=== PATIENT | male | born 1975 | race Caucasian/White ===

== ENCOUNTER 2018-05-31 15:45 | Emergency (ER) | payer OTHER ==
[~2018-05-31] VITALS: Ht 185.4 cm; Wt 81.7 kg
[2018-05-31] MEDS ORDERED: OMEPRAZOLE40 MG PO (20:52)
== END 2018-05-31 21:03 | disposition home or self-care (01) ==
LOC: ED 15:45
DX: R10.9 Unspecified abdominal pain (principal)
CPT/HCPCS: 74177; 80053; 81001; 83690; 85025; 99284; Q9967

== ENCOUNTER 2018-06-09 06:25 | Day surgery (SDC) | payer OTHER ==
[~2018-06-09] VITALS: Ht 182.9 cm; Wt 81.7 kg
--- NOTE | ~2018-06-09 | OR ---
[facility] [address] [place], [place] [address] Draft DATE OF OPERATION: 06/09/2018 SURGEON: Yandel Palafox MD PREOPERATIVE DIAGNOSES: 1. Severe unrelenting abdominal pain, epigastric and left upper quadrant, and occasions of left lower quadrant pain. 2. Diarrhea. POSTOPERATIVE DIAGNOSES: 1. Hiatal hernia with mild distal esophagitis and mild proximal gastritis. 2. Normal-appearing colon and ileum except for mild proctitis, probably bowel prep related. PROCEDURES PERFORMED: 1. Esophagogastroduodenoscopy with biopsy. 2. Total colonoscopy to cecum with biopsies of ileum, cecum, and rectum. ANESTHESIA: Intravenous sedation, fentanyl 150 mcg, and Versed 8 mg. INDICATION: This 42-year-old white man is a patient of KJ Giron as well as Dr. Solano. He has recently had the onset of severe epigastric and left upper quadrant pain as well as left lower abdominal pain. His initial symptoms began a month ago with generalized bloating following meals. His evaluation included a CT scan, which shows no specific abnormality particularly. He has had no fever or chills, or blood per rectum, but has had diarrhea. He has had no vomiting. Has no dysphagia. He was admitted at this time to undergo upper endoscopy as well as colonoscopy to better characterize the problem. He understands risks of bleeding, infection, and perforation, and wished to proceed. FINDINGS: On upper endoscopy, he had a small hiatal hernia and minimal distal esophagitis. There is some proximal (fundic) inflammatory change with the pylorus and duodenum, and stomach were otherwise normal. CLOtest was negative 20 minutes post procedure. On colonoscopy, the prep was quite good. Complete colonoscopy was undertaken of the cecum and intubation of the ileum was accomplished without problem. The ileum appeared PATIENT NAME: HARMEET FRENCH OPERATIVE REPORT DATE OF : 77 REPORT #: [id number] PHYSICIAN: YANDEL PALAFOX MD PCP: LIS SEE PAC REPORT IS CONFIDENTIAL AND NOT TO BE RELEASED WITHOUT AUTHORIZATION [facility] [address] [place], [place] [address] Draft normal. The biopsies were obtained nevertheless. Biopsies were also obtained of the cecum in the rectum throughout the colon. There was no sign of inflammatory bowel disease, diverticular formation, cancer or polyps. There was minimal inflammatory change of the rectum, which I suspect his bowel prep related and not clinically significant. DESCRIPTION OF PROCEDURE: The patient was brought to the endoscopy suite and placed in lateral decubitus position after undergoing topical Hurricaine spray hypopharyngeal anesthesia. A bite block was placed. Full cardiopulmonary monitoring was maintained. An Olympus video upper endoscope was passed in the hypopharynx. The vocal cords appeared normal. Scope was advanced to the esophagus throughout its length, it was normal. Scope was passed in the stomach, which was insufflated with air, rugal folds were normal, antrum was normal, pylorus was normal. Scope was passed through into the duodenum, which looked normal. The scope was passed to the 3rd portion. The scope was withdrawn and biopsies taken of 2nd, 3rd, and bulbar portions. The scope was withdrawn to the antrum, where biopsies were obtained as well. Retroflexed view was undertaken showing a small hiatal hernia and some proximal gastric inflammatory change, but no ulceration. Biopsies were taken of proximal distal stomach for CLOtest. The scope was withdrawn to the distal esophagus, where biopsies were then taken and in the mid esophagus additional biopsies obtained. Further withdrawal of scope showed no other abnormality. The table was rotated and additional sedation given and digital rectal examination performed, which was normal. An Olympus video colonoscope was passed in the rectum and manipulated throughout the colon, ultimately intubating the cecum. The ileocecal valve was identified and intubated without problem. The scope was passed at least 10 cm into the ilium, showing no sign of inflammatory bowel disease. Biopsies were obtained throughout the segment of the ileum. The scope was withdrawn to the cecum which was biopsied, though it appeared normal. Careful withdrawal of scope showed no sign of abnormality. Specifically no polyps, diverticular formation, colitis, or cancer. Biopsies were also taken of the rectum to assess for occult colitis. Retroflexed view was normal as well. The scope was straightened, withdrawn, and removed, and the patient was taken to recovery in good condition. CONCLUDING DIAGNOSES: 1. Essentially normal colon. 2. Mild proximal gastritis, hiatal hernia, and minimal esophagitis. PLAN: Recommend continued use of Carafate as prescribed yesterday. We will obtain a gallbladder ultrasound and if necessary, a CCK-HIDA test. PATIENT NAME: HARMEET FRENCH AMIE OPERATIVE REPORT DATE OF : 77 REPORT #: [id number] PHYSICIAN: YANDEL PALAFOX MD PCP: LIS SEE PAC REPORT IS CONFIDENTIAL AND NOT TO BE RELEASED WITHOUT AUTHORIZATION [address] [address] Draft MD MEGA Stringer/MODL /[id number] cc: KJ Giron MD Copies: IVETTE SOLANO MD ~ PATIENT NAME: HARMEET FRENCH OPERATIVE REPORT DATE OF : 77 REPORT #: [id number] PHYSICIAN: YANDEL PALAFOX MD PCP: LIS SEE PAC REPORT IS CONFIDENTIAL AND NOT TO BE RELEASED WITHOUT AUTHORIZATION
[~2018-06-09 06:25] MED LIST: OMEPRAZOLE40 MG PO
--- NOTE | 2018-06-09 08:41 | NUR ---
06/09/18 0841 Shawanda Contreras 0867-PATIENT ARRIVED TO PACU ON 3L NC WEANED TO 2L O2 SAT 98% PATIENT DROWSY AWAKE DENIES PAIN OR NAUSEA. ABDOMEN SOFT. ENCOURAGED TO PASS FLATUS.
== END 2018-06-09 09:30 | disposition home or self-care (01) ==
LOC: DS 06:25 → OPS 06:25 → DS 06:45 → OPS 09:30
PROVIDERS: Surgery
PROC: 0DB68ZX Excision of Stomach, Via Natural or Artificial Opening Endoscopic, Diagnostic (ICD-10-PCS; 2018-06-09)
PROC: 0DB28ZX Excision of Middle Esophagus, Via Natural or Artificial Opening Endoscopic, Diagnostic (ICD-10-PCS; 2018-06-09)
PROC: 0DB38ZX Excision of Lower Esophagus, Via Natural or Artificial Opening Endoscopic, Diagnostic (ICD-10-PCS; 2018-06-09)
PROC: 0DBH8ZX Excision of Cecum, Via Natural or Artificial Opening Endoscopic, Diagnostic (ICD-10-PCS; 2018-06-09)
PROC: 0DBP8ZX Excision of Rectum, Via Natural or Artificial Opening Endoscopic, Diagnostic (ICD-10-PCS; 2018-06-09)
PROC: 0DBB8ZX Excision of Ileum, Via Natural or Artificial Opening Endoscopic, Diagnostic (ICD-10-PCS; 2018-06-09)
PROC: 0DB98ZX Excision of Duodenum, Via Natural or Artificial Opening Endoscopic, Diagnostic (ICD-10-PCS; principal; 2018-06-09 06:45)
PROC: 0DB78ZX Excision of Stomach, Pylorus, Via Natural or Artificial Opening Endoscopic, Diagnostic (ICD-10-PCS; 2018-06-09 06:45)
DX: K62.1 Rectal polyp (principal); K29.50 Unspecified chronic gastritis without bleeding; K29.80 Duodenitis without bleeding; K21.0 Gastro-esophageal reflux disease with esophagitis; K62.89 Other specified diseases of anus and rectum; K44.9 Diaphragmatic hernia without obstruction or gangrene
CPT/HCPCS: 99153; G0500; J2250; J3010; J7120

== ENCOUNTER 2018-06-18 08:40 | Day surgery (SDC) | payer OTHER ==
[~2018-06-18] VITALS: Ht 182.9 cm; Wt 81.7 kg
[2018-06-18] MEDS ORDERED: OXYCODON-ACETA1 EAC2 PO (14:40)
[2018-06-18] MEDS ORDERED: IBUPROFEN600 MG PO (14:40)
[2018-06-18] MEDS ORDERED: MAPAP325 MG PO (14:41)
--- NOTE | 2018-06-18 14:47 | NUR ---
06/18/18 Mikey7 Yojana Ervin 1433- PT ARRIVES TO PACU WITH EYES CLOSED. PT HAS MASK ON WITH 6 L 02. PT QUICKLY AWAKENS TO VERBAL STIMULATION AND IS ORIENTED TO PERSON, PLACE AND TIME. PT C/O PAIN IN RIGHT SHOULDER RATING IT 6/10. SCD'S IN PLACE BILAT.
--- NOTE | 2018-06-18 15:44 | NUR ---
1530: PATIENT BACK IN DAY SURGERY ROOM FROM PACU. C/O PAIN 5/10. DECLINES PAIN MEDS AT THIS TIME. DENIES NAUSEA. GIVEN ICE WATER AND JUICE. IV SITE WNL. 4 SCOPE SITE ON ABDOMEN WITH STERI STRIPS. SCANT AMOUNT OF RED DRAINAGE AT SCOPE SITES. SCDs ON. SOUP AND SANDWICH ORDERED FOR PATIENT. CALL LIGHT WITHIN REACH. FAMILY AT BEDSIDE.
--- NOTE | 2018-06-18 16:28 | NUR ---
PATIENT TOLERATED SOUP, SANDWICH, JUICE, AND WATER. STATES PAIN UP TO ABOUT 8/10 IN ABDOMEN AND RIGHT SHOULDER. MEDICATED FOR PAIN WITH 1 TABLET OF PERCOCET. IV SITE WNL. VS CHECKED. SCDs ON. CALL LIGHT WITHIN REACH.
--- NOTE | 2018-06-18 17:59 | NUR ---
LE 1545: PT UP TO BR W/RN STANDBY. PT AMBULATES WELL AND DENIES DIZZINESS. PT VOIDS 200 ML CLEAR YELLOW URINE AND DC INSTRUCTIONS ARE GIVEN IN PRESENCE OF SPOUSE. SUPRAUMBILICAL SITE REINFORCED W/GAUZE AND TAPE. PT DRESSES SELF IN PRESENCE OF SPOUSE AND TRANSFERS SELF TO AND THEN TO PERSONAL VEHICLE AND DOES THAT WELL.
--- NOTE | 2018-06-18 23:25 | OR ---
[facility] [address] [place], [place] [address] Signed DATE OF OPERATION: 06/18/2018 SURGEON: Yandel Palafox MD PREOPERATIVE DIAGNOSIS: Chronic abdominal pain, probable acalculous cholecystitis. POSTOPERATIVE DIAGNOSIS: Acalculous cholecystitis with some stone debris within the gallbladder. PROCEDURES PERFORMED: 1. Laparoscopic cholecystectomy with intraoperative cholangiogram. 2. Surgeon-directed fluoroscopy. ANESTHESIA: General endotracheal, Ute Ed, C.R.N.A., and local 11 mL of 0.25% Marcaine with epinephrine. INDICATION: This 42-year-old white man is a patient of Lorenzo Dos Santos and Dr. Ivette Solano, who has had enigmatic generalized abdominal pain, often worse following meals. Extensive evaluation has been undertaken. Gallbladder ultrasound is normal and a recent CCK HIDA test showed an ejection fraction of 95% with marked reproduction of his symptoms. It is recalled that upper endoscopy and colonoscopy showed no sign of lesion to account for symptoms. My concern was he may have possible irritable bowel syndrome. On the basis of his recent findings on CCK HIDA test and with dominant symptoms including right subcostal pain following meals, he is considered likely to have acalculous cholecystitis and on that basis, has been recommended to consider cholecystectomy preferably by laparoscopic approach. The risks of bleeding, infection, bile duct injury, and most importantly failure to cure his symptoms was reviewed in detail in relationship to cholecystectomy. An open procedure may be required as well. He understands all of this and wished to proceed. FINDINGS: Gallbladder did appear chronically inflamed. The liver was entirely normal. The appendix was not visualized. The duodenum, stomach, and liver in its entirety were normal. The gallbladder once excised showed a small amount of stone debris within the gallbladder mucosa with chronic inflammatory change. The cholangiogram was normal. Electronically Signed By: YANDEL PALAFOX MD 06/18/18 2325 PATIENT NAME: LORENZO FRENCH OPERATIVE REPORT DATE OF : 77 REPORT #: [id number] PHYSICIAN: YANDEL PALAFOX MD PCP: LIS SEE PAC REPORT IS CONFIDENTIAL AND NOT TO BE RELEASED WITHOUT AUTHORIZATION [facility] [address], [place] [address] Signed DESCRIPTION OF PROCEDURE: The patient was brought to the operating room and given a general endotracheal anesthetic. Preoperative antibiotic Ancef was given. Sequential compression device stockings used and heparin subcutaneously administered. The abdomen was prepared with chlorhexidine solution and draped sterilely. An infraumbilical incision was made and using an open Vani cannula technique, the abdomen was entered without problem and pneumoperitoneum achieved to a level of 14 mmHg with carbon dioxide gas. Intraabdominal inspection with a 30-degree angled laparoscope was undertaken showing a chronically inflamed gallbladder, normal liver, and no other findings of concern. An epigastric 10-mm port was placed and subsequently two right-sided 5-mm trocars under direct visualization as well. The gallbladder was elevated cephalad and retracted laterally and using blunt electrocautery dissection, the triangle of Calot was dissected free. Once the cystic duct and cystic artery were well identified, maintaining the critical view, a clip was applied across the gallbladder cystic duct junction and a transverse choledochotomy made in the cystic duct. Egress of clear bile was noted from the cystic duct with retrograde milking of the duct. Using an Beltrán type cholangiocatheter, intraoperative cholangiography was undertaken showing free flow of contrast in biliary tree with prompt emptying into the duodenum. There was no sign of filling defect, biliary anomalies, or other abnormalities. The catheter was removed and the cystic duct was triply clipped and divided and the gallbladder dissected free in a retrograde fashion. The gallbladder was extracted through the infraumbilical port site without problem, opened on the back table, and found to have cholesterol stone debris, but no well-formed stones otherwise. The mucosa was chronically inflamed. Irrigation was undertaken in subhepatic space. There was no sign of bile leak, bleeding, or other problems. The trocars were removed under direct visualization showing no sign of bleeding. The infraumbilical fascial incision was reapproximated with interrupted 0-Vicryl suture. All wounds were copiously irrigated and 11 mL of 0.25% Marcaine with epinephrine was injected locally for postoperative analgesic effect. The skin was then closed with interrupted 3-0 Vicryl. Steri-Strips were applied. The patient was ultimately extubated and transferred to recovery room in good condition having suffered no complication. Sponge, needle, and instrument counts were reported as correct x3. MD MEGA Stringer/ELIA /[id number] Electronically Signed By: YANDEL PALAFOX MD 06/18/18 2325 PATIENT NAME: LORENZO FRENCH OPERATIVE REPORT DATE OF : 77 REPORT #: [id number] PHYSICIAN: YANDEL PALAFOX MD PCP: LIS SEE PAC REPORT IS CONFIDENTIAL AND NOT TO BE RELEASED WITHOUT AUTHORIZATION [facility] [address] [place], [place] [address] Signed cc: Agnes Robles MD Copies: IVETTE SOLANO MD ~ Electronically Signed By: YANDEL PALAFOX MD 06/18/18 2325 PATIENT NAME: LORENZO FRENCH OPERATIVE REPORT DATE OF : 77 REPORT #: [id number] PHYSICIAN: YANDEL PALAFOX MD PCP: LIS SEE PAC REPORT IS CONFIDENTIAL AND NOT TO BE RELEASED WITHOUT AUTHORIZATION
== END 2018-06-18 17:50 | disposition home or self-care (01) ==
LOC: DS 08:40
PROVIDERS: Surgery
PROC: BF13YZZ Fluoroscopy of Gallbladder and Bile Ducts using Other Contrast (ICD-10-PCS; 2018-06-18)
PROC: 0FT44ZZ Resection of Gallbladder, Percutaneous Endoscopic Approach (ICD-10-PCS; principal; 2018-06-18 10:30)
DX: K81.1 Chronic cholecystitis (principal); Z79.899 Other long term (current) drug therapy
CPT/HCPCS: 00790; 74300; J0690; J1100; J1644; J1885; J2250; J2405; J2550; J2704; J3010; J7120; Q9967

== ENCOUNTER 2024-08-25 13:16 | Emergency (ER) | payer OTHER ==
[~2024-08-25] VITALS: Ht 182.9 cm; Wt 83.4 kg
[~2024-08-25 13:16] MED LIST changes: +IBUPROFEN600 MG PO; +MAPAP325 MG PO; +OXYCODON-ACETA1 EAC2 PO
[2024-08-25] MEDS ORDERED: HYDROmorphone HCL 1 MG/ML SYR IV PRN (13:30)
[2024-08-25] MEDS ORDERED: ondansetron HCL 4 MG/2 ML VIAL IV ONE (13:30)
[2024-08-25] MEDS ORDERED: SODIUM CHLORIDE 0.9% 1,000 ML IV ONE (13:30)
[2024-08-25 13:44] LABS: BASOPHILS 0.2 % (0-2); EOSINOPHILS 2.4 % (0-6); HEMATOCRIT 42.1 % (35.0-50.0); HEMOGLOBIN 15.1 g/dL (12.0-18.0); LYMPHOCYTES 2.7 % (24-44); MCH 30.5 (27-36); MCHC 35.8 g/dl (30-36); MCV 85.4 fl (81-99); MONOCYTES 5.2 % (0-12); NEUTROPHILS 89.5 % (39-80); PLATELET COUNT 330 K/uL (140-440); RBC 4.94 M/ul (4.3-5.7); RDW 12.9 (10.5-15.0)
[2024-08-25 13:51] LABS: ALBUMIN 3.9 g/dL (3.4-5.0); ALBUMIN/GLOBULIN RATIO 1.18 (1.1-2.4); ANION GAP 10.8 (7-21); BILIRUBIN, TOTAL 1.3 ng/dL (0.2-1.0); BUN/CREATININE RATIO 6.71 (6.0-28.6); CALCIUM 8.8 mg/dL (8.5-10.1); CREATININE, SERUM 1.34 mg/dL (0.70-1.30); POTASSIUM 3.8 mmol/L (3.5-5.1); PROTEIN, TOTAL 7.2 g/dL (6.4-8.2)
[2024-08-25 15:45] LABS: BILIRUBIN, URINE NEGATIVE (negative); BLOOD/HGB, URINE NEGATIVE (Negative); KETONE, URINE NEGATIVE (Negative); LEUK ESTERASE, URINE NEGATIVE (negative); NITRITE, URINE NEGATIVE (negative); PH, URINE 7.5 (5-7)
[2024-08-25] MEDS ORDERED: KETOROLAC TROMETHAMINE 15 MG/ML VIAL IV ONE (15:45)
[2024-08-25 15:52] LABS: BACTERIA, URINE NONE SEEN /hpf (negative); CASTS, URINE NONE SEEN \\lpf; COLLECTION TYPE, URINE CLEAN CATCH; CRYSTALS, URINE NONE SEEN (0-1+); EPITHELIAL CELLS, URINE SQUAMOUS 1+ /lpf (0-1+); RED BLOOD CELLS, URINE 0-1 /hpf (0-5); REFLEX CULTURE, URINE No (No)
[2024-08-25] MEDS ORDERED: HYDROCODON-ACE1 EA10 PO (16:06)
[2024-08-25] MEDS ORDERED: DICYCLOMINE HCL20 MG PO (16:06)
[2024-08-25] MEDS ORDERED: ONDANSETRON ODT4 MG PO (16:06)
[2024-08-25 16:21] VITALS: BP 108/74
== END 2024-08-25 16:22 | disposition home or self-care (01) ==
LOC: ED 13:16
PROVIDERS: Emergency Medicine
DX: R10.32 Left lower quadrant pain (principal); Z79.899 Other long term (current) drug therapy
CPT/HCPCS: 36415; 74177; 80053; 81001; 83690; 85025; 96361; 96375; 99284-25; J1171; J1885; J2405; J7030; Q9967

== ENCOUNTER 2025-03-08 07:23 | Day surgery (SDC) | payer OTHER ==
[~2025-03-08] VITALS: Ht 182.9 cm; Wt 84.1 kg
[~2025-03-08 07:23] MED LIST changes: +DICYCLOMINE HCL20 MG PO; +HYDROCODON-ACE1 EA10 PO; +IBLOOD GLUCOSE TEST STRIP 1 EA TEST VI PRN; +LACTATED RINGER'S 1,000 ML IV SCH; +LIDOCAINE HCL 1% 5 ML SDV INJ ONE; +MIDAZOLAM HCL 5 MG/5 ML VIAL IV PRN; +ONDANSETRON ODT4 MG PO; +fentaNYL citrate 100 MCG/2 ML VIAL IV PRN
[2025-03-08 07:40] VITALS: BP 120/77
[2025-03-08] MEDS ORDERED: ZITHROMAX250 MG PO (07:42)
[2025-03-08] MEDS ORDERED: TYLENOL EXTRA500 MG PO (07:43)
[2025-03-08] MEDS ORDERED: fentaNYL citrate 100 MCG/2 ML VIAL ONE (08:15)
[2025-03-08] MEDS ORDERED: MIDAZOLAM HCL 5 MG/5 ML VIAL ONE (08:15)
--- NOTE | 2025-03-08 09:27 | NUR ---
03/08/25 0927 Brianne Monahan OXYGEN SATURATION REMAINS 96% ON 3L VIA NC. OXYGEN IS REDUCED TO 1L VIA NC.
[2025-03-08 09:57] VITALS: BP 109/66
--- NOTE | 2025-03-10 08:02 | PATH ---
[facility] [address] [place], [place] [address] Signed SPECIMEN(S): A CECUM COLON BIOPSY SPECIMEN(S): B ILEUM BIOPSY SPECIMEN(S): C RECTUM SPECIMEN SOURCE: A. CECUM COLON BIOPSY B. ILEUM BIOPSY C. RECTUM CLINICAL HISTORY: Recurrent abdominal pain FINAL PATHOLOGIC DIAGNOSIS: A. Cecum, biopsy - Colonic mucosa with no significant pathologic changes B. Ileum, biopsy: - Small bowel mucosa with no significant pathologic changes C. Rectum, biopsy - Colonic mucosa with no significant pathologic changes BRP MICROSCOPIC EXAMINATION: Histologic sections of all submitted blocks are examined by light microscopy. These findings, together with the gross examination, support the pathologic diagnosis. GROSS DESCRIPTION: A. The specimen, labeled and designated "Deist, cecum colon biopsy," is received in formalin and consists of four gleason soft tissue fragments, ranging from 0.1-0.7 cm. Entirely submitted in (A1). B. The specimen, labeled and designated "Deist, ileum biopsy," is received in formalin and consists of two gleason soft tissue fragments, ranging from 0.2-0.3 cm. Entirely submitted in (B1). C. The specimen, labeled and designated "Deist, rectum," is received in formalin and consists of two gleason soft tissue fragments, ranging from 0.2-0.3 cm. Entirely submitted in (C1). VB (under the direct supervision of a pathologist) The Gross Description was prepared using a voice recognition system. The report was reviewed for accuracy; however, sound-alike word errors, addition and/or deletions may occur. If there is any question about this report, please contact Client Services. PATIENT NAME: HARMEET FRENCH PATHOLOGY DATE OF : 77 REPORT #: [id number] PHYSICIAN: JAVY VASQUEZ PCP: LIS SEE PAC REPORT IS CONFIDENTIAL AND NOT TO BE RELEASED WITHOUT AUTHORIZATION [facility] [address] [place], [place] [address] Signed ADDITIONAL NOTES: Immunohistochemical and/or in situ hybridization studies if performed in this case included appropriate positive controls that reacted as expected. This test was developed and its performance characteristics determined by [facility]. It has not been cleared or approved by the U.S. Food and Drug Administration. The FDA has determined that such clearance or approval is not necessary. This test is used for clinical purposes. It should not be regarded as investigational or for research. [facility] is certified under the Clinical Laboratory Improvement Amendments of 1988 (CLIA) as qualified to perform high complexity clinical laboratory testing. PERFORMING LABORATORY: Technical component was performed by [facility], [address] [place] [address] (CLIA# [id number]). Professional interpretation was performed by [facility], [address] [place] [id number] (CLIA#: [id number]). Diagnostician: Anuel Brunner MD Pathologist Electronically Signed 03/10/2025 Copies: ~ PATIENT NAME: HARMEET FRENCH PATHOLOGY DATE OF : [birth year] REPORT #: [id number] PHYSICIAN: JAVY VASQUEZ PCP: LIS SEE PAC REPORT IS CONFIDENTIAL AND NOT TO BE RELEASED WITHOUT AUTHORIZATION
--- NOTE | 2025-03-10 15:53 | OR ---
[facility] [address] [place], [place] [address] Signed DATE OF OPERATION: 03/08/2025 SURGEON: Yandel Palafox MD PREOPERATIVE DIAGNOSES: 1. Severe episodic paroxysmal abdominal pain. 2. Mild proctitis on colonoscopy in 2018. POSTOPERATIVE DIAGNOSIS: Normal colon and ilium. PROCEDURE: Total colonoscopy to cecum with intubation of the ileum and biopsy of the ileum, cecum and rectum. ANESTHESIA: Intravenous sedation fentanyl 150 mcg, Versed 6 mg. INDICATION: This 49-year-old white man is a patient of KJ Villalta and was last seen by me in 2018 at which time he underwent colonoscopy and concurrent upper endoscopy. The patient has had episodic severe and paroxysmal abdominal pain severe enough that he will curl up in a ball to allow for resolution. He was seen in the emergency room at [facility] on January 06 after ambulance transport. He does not notice a strong relationship to eating with onset of the pain. He has undergone cholecystectomy in the past and indeed had diarrhea for which he was treated effectively with colestipol. He does have occasional diarrhea still. He has no blood per rectum. He recently was on a Z-Buddy antibiotic. He does not smoke. Does drink alcohol. He is admitted at this time to undergo colonoscopy to better characterize the colon particularly to assess for neoplasm or other similar problem that may be accounting for his paroxysmal severe abdominal pain. More likely than not, he has an irritable bowel syndrome issue. We have discussed the idea of dicyclomine (Bentyl) as well as low FODMAP diet in hopes of improving his overall well-being. He understands the risk of colonoscopy including but not limited to bleeding, infection, and perforation and wished to proceed. FINDINGS: The prep was excellent. Complete colonoscopy was undertaken of the cecum. Full intubation of the ileum was undertaken as well. Ileum, colon, and rectum were all Electronically Signed By: YANDEL PALAFOX MD 03/10/25 1553 PATIENT NAME: HARMEET FRENCH OPERATIVE REPORT DATE OF : 77 REPORT #: [id number] PHYSICIAN: YANDEL PALAFOX MD PCP: LIS SEE PAC REPORT IS CONFIDENTIAL AND NOT TO BE RELEASED WITHOUT AUTHORIZATION [facility] [address] [place], [place] [address] Signed normal. Biopsies were taken of rectum, cecum and ilium to assess for occult inflammatory bowel disease. DESCRIPTION OF PROCEDURE: The patient was brought to the endoscopy suite and placed in lateral decubitus position, given intravenous sedation to the point of slurred speech and nystagmus. Digital rectal examination was normal. Olympus video colonoscope was passed in the rectum and manipulated throughout the colon ultimately intubating the cecum itself. The ileocecal valve was intubated ultimately and mucosa of the ileum was normal also. Biopsies were taken of the ileum and secondarily of the cecum. Withdrawal of scope showed no other abnormality. Biopsies were taken of the rectum to assess for occult disease as well. Retroflexed view was normal also. Scope was removed. The patient was taken to the recovery room in good condition. CONCLUDING DIAGNOSIS: Normal-appearing colon and ilium. Await pathology reports regarding possibility of occult colitis. We will empirically begin dicyclomine as well as a low FODMAP diet. He will return to see me in approximately 6 to 8 weeks. Yandel Palafox MD JM/MODL /[id number] cc: Lis See PA-C Copies: ~ Electronically Signed By: YANDEL PALAFOX MD 03/10/25 1553 PATIENT NAME: HARMEET FRENCH OPERATIVE REPORT DATE OF : 77 REPORT #: [id number] PHYSICIAN: YANDEL PALAFOX MD PCP: LIS SEE PAC REPORT IS CONFIDENTIAL AND NOT TO BE RELEASED WITHOUT AUTHORIZATION
== END 2025-03-08 10:06 | disposition home or self-care (01) ==
LOC: OPS 07:23 → DS 12:15
PROVIDERS: ATTEND Surgery
PROC: 0DBP8ZX Excision of Rectum, Via Natural or Artificial Opening Endoscopic, Diagnostic (ICD-10-PCS; 2025-03-08)
PROC: 0DBB8ZX Excision of Ileum, Via Natural or Artificial Opening Endoscopic, Diagnostic (ICD-10-PCS; 2025-03-08)
PROC: 0DBH8ZX Excision of Cecum, Via Natural or Artificial Opening Endoscopic, Diagnostic (ICD-10-PCS; principal; 2025-03-08 08:30)
DX: K63.89 Other specified diseases of intestine (principal); K81.1 Chronic cholecystitis; Z88.5 Allergy status to narcotic agent
CPT/HCPCS: 99153; G0500; J2250; J3010; J7121